=== PATIENT | female | born 1960 | race Caucasian/White ===

== ENCOUNTER 2022-03-03 07:35 | Outpatient (CLI) | payer MEDICARE, BC | END 2022-03-03 07:36 | disposition home or self-care (01) | LOC: CSHULT 07:35 | PROVIDERS: ATTEND Internal Medicine | DX: K74.60 Unspecified cirrhosis of liver (principal); K75.81 Nonalcoholic steatohepatitis (NASH) | CPT/HCPCS: 76700 ==

== ENCOUNTER 2022-10-02 08:32 | Outpatient (CLI) | payer MEDICARE, BC | END 2022-10-02 08:33 | disposition home or self-care (01) | LOC: CSHULT 08:32 | PROVIDERS: ATTEND Internal Medicine | DX: K74.60 Unspecified cirrhosis of liver (principal); K75.81 Nonalcoholic steatohepatitis (NASH); K76.9 Liver disease, unspecified; Z90.49 Acquired absence of other specified parts of digestive tract | CPT/HCPCS: 76700 ==

== ENCOUNTER 2023-09-22 09:20 | Outpatient (CLI) | payer MEDICARE | END 2023-09-22 09:21 | disposition home or self-care (01) | LOC: CSHCP 09:20 | PROVIDERS: ATTEND Internal Medicine | DX: R05.3 Chronic cough (principal); J44.9 Chronic obstructive pulmonary disease, unspecified | CPT/HCPCS: 94060; 94664; 94726; 94729; 94760 ==

== ENCOUNTER 2024-09-09 12:44 | Emergency (ER) | payer OTHER, MEDICARE ==
[2024-09-09] MEDS ORDERED: Acetaminophen 325 MG TAB ONE (13:40)
== END 2024-09-09 15:00 | disposition home or self-care (01) ==
LOC: CSHERS 12:44
DX: M54.50 Low back pain, unspecified (principal); V89.2XXA Person injured in unspecified motor-vehicle accident, traffic, initial encounter; Y93.89 Activity, other specified
CPT/HCPCS: 72131